=== PATIENT | female | born 1955 | race Caucasian/White ===

== ENCOUNTER 2016-03-24 10:15 | Day surgery (SDC) | payer OTHER ==
[~2016-03-24] VITALS: Ht 165.1 cm; Wt 91.0 kg
[~2016-03-24 10:15] MED LIST: 0.9% Sodium Chloride 1,000 ML IV SCH; AMOX-354 PO; CALC600T12 PO; FLUT9.9S NS; MAGN250T29 PO; Sodium Chloride LOK Flush 10 mL Syringe IV PRN; fentaNYL-PF 50 mCg/mL 2 mL Inj IVPUSH PRN
[2016-03-24] MEDS ORDERED: OMEP40CA36 PO (10:43)
[2016-03-24] MEDS ORDERED: DIVA500T14 PO (10:43)
[2016-03-24] MEDS ORDERED: OXYB5TAB10 PO (10:43)
[2016-03-24 10:52] VITALS: BP 142/85; PULSE 80; RESP 14; O2SAT 98
[2016-03-24 12:04] VITALS: BP 128/74; PULSE 82; O2SAT 94
[2016-03-24 12:14] VITALS: BP 121/75; PULSE 75; O2SAT 95
--- NOTE | 2016-03-24 12:15 | ENDO ---
[address] [address] ENDOSCOPY PROCEDURE PATIENT: JACE LENNON : 1955 MR#: [id number] ADMIT: 03/24/2016 JOB ID: [id number] PRIMARY PROVIDER: Cj Kitchen MD PROCEDURE: Esophagogastroduodenoscopy. INDICATION: A 61-year-old female with a history of a hyperplastic antral polyp back in October. She returns today to ensure that all of this is sufficiently removed. EQUIPMENT: GIF H 180 J. SEDATION: Versed 6 mg, 125 mcg fentanyl. COMPLICATIONS: None identified. PROCEDURE INFORMATION: After the risks and benefits were explained, written and verbal informed consent was obtained. The patient was brought into the endoscopy suite and placed into the left lateral decubitus position. Sedation was achieved using the above-stated medications with the addition of oxygen via nasal cannula. The scope was introduced into the mouth through the bite block, and advanced under direct visualization to the second portion of the duodenum. The scope was slowly withdrawn to carefully examine the mucosa for any defects or lesions. Retroflexed views were accomplished in the stomach, the stomach was decompressed, and the scope removed the patient, who tolerated the procedure well. FINDINGS: 1. Duodenum: No significant pathology identified from the bulb through to the second portion. 2. Stomach: No ulcers, no mass lesions. No outlet obstruction. Retroflexed views of the LES disclosed a small sliding hiatal hernia. I did not identify any significant polypoid or nodular structures in the antral or prepyloric region. 3. Esophagus: The squamocolumnar junction correlated with the top of the gastric folds. The GE junction was at about 38 cm from the incisors. No acute erosive changes. No strictures. No mass lesions. ENDOSCOPIC DIAGNOSIS: 1. Small hiatal hernia. 2. No residual gastric polypoid structures. RECOMMENDATIONS: 1. Continue anti-reflux therapy. 2. Follow up in GI Clinic any time as needed. 3. At this point surveillance endoscopy does not appear required.
== END 2016-03-24 23:59 | disposition home or self-care (01) ==
LOC: END 10:15
PROVIDERS: ATTEND Internal Medicine Gastroenterology
DX: K44.9 Diaphragmatic hernia without obstruction or gangrene (principal); K21.9 Gastro-esophageal reflux disease without esophagitis; N39.41 Urge incontinence; G40.909 Epilepsy, unspecified, not intractable, without status epilepticus
CPT/HCPCS: 43235; G0500; J2250; J7030